=== PATIENT | male | born 1970 | race African-American/Black ===

== ENCOUNTER 2016-10-03 11:15 | Emergency (ER) | payer OTHER ==
[2016-10-03 11:25] VITALS: BP 164/109; PULSE 94; TEMP 98.8; BMI 27.3
--- NOTE | 2016-10-03 11:41 | PDOC ---
History of Present Illness - General Chief Complaint: Injury Stated Complaint: RT HAND LACERATION History Source: Patient, Unavil. due to pt. cond. - History of Present Illness Initial Comments: 10/03/16 11:40 Chief complaint: Laceration to right palm History of present illness: Patient is a 46-year-old male history of hypertension here today with laceration to his right palmar 5th finger that he sustained while picking up garbage at work [employer] today. Pt. has any numbness of his right hand or right fifth finger. Patient has full range of motion of all digits of right hand. Patient is unsure of what he got caught on in the garbage. 10/03/16 11:40 10/03/16 11:54 Occurred: reports: just prior to arrival Severity: reports: mild Pain Location: reports: upper extremity (rt. palmar proximal fifth finger) Method of Injury: Yes: other (something sharp in garbage) Modifying Factors: improves with: None Past History - Past Medical History Allergies/Adverse Reactions: Allergies Allergy/AdvReac Type Severity Reaction Status Date / Time No Known Allergies Allergy Verified 10/03/16 11:18 Home Medications: Ambulatory Orders Cephalexin Monohydrate [Keflex -] 500 mg PO Q8H #21 capsule 10/03/16 HTN: Yes (does not take meds) - Psycho/Social/Smoking Cessation Hx Anxiety: No Suicidal Ideation: No Smoking History: Never smoked Have you smoked in the past 12 months: No Information on smoking cessation initiated: No Hx Alcohol Use: No Drug/Substance Use Hx: No Substance Use Type: None Review of Systems - Review of Systems Able to Perform ROS?: Yes Constitutional: No: Symptoms Reported HEENTM: No: Symptoms Reported Respiratory: No: Symptoms reported Cardiac (ROS): No: Symptoms Reported ABD/GI: No: Symptoms Reported : No: Symptoms Reported Musculoskeletal: No: Symptoms Reported Integumentary: Yes: Other (laceration rt. proximal palmar 5th finger at mcp ) Neurological: No: Symptoms reported *Physical Exam - Vital Signs Last Vital Signs Temp Pulse Resp BP Pulse Ox 98.8 F 94 H 18 164/109 100 10/03/16 11:19 10/03/16 11:19 10/03/16 11:19 10/03/16 11:19 10/03/16 11:19 - Physical Exam General Appearance: Yes: Appropriately Dressed Comments:: 10/03/16 11:59 radial pulse 4 + rt. Extremity: positive: Normal Capillary Refill, Normal Range of Motion (right hand all digits), Other (palmar aspect 5th finger at mcp crease laceration ) Integumentary: positive: Other (palmar aspect 5th finger at mcp crease laceration horizontal 2.7 cm x 0.25cm ) Neurologic: positive: Respond to painful stimul (rt. 5th finger). negative: Numbness, Sensory Deficit Medical Decision Making - Medical Decision Making 10/03/16 12:32 *DC/Admit/Observation/Transfer Diagnosis at time of Disposition: Laceration of hand Qualifiers: Encounter type: initial encounter Laterality: right Qualified Code(s): S61.411A - Laceration without foreign body of right hand, initial encounter - Discharge Dispostion Disposition: HOME Condition at time of disposition: Stable - Prescriptions Prescriptions: Cephalexin Monohydrate [Keflex -] 500 mg PO Q8H #21 capsule - Referrals Referrals: Waldemar Martin MD [Primary Care Provider] - - Patient Instructions Additional Instructions: You may wash wound daily with antibacterial soap and water pat dry and apply tiny amount of bacitracin ointment twice daily, with bandage when out of the home Let air out at night Sunday your tetanus diphtheria and pertussis vaccine was updated follow up with your primary care physician regards to your blood pressure Return to emergency room in 10-14 days for suture removal or if any discharge around the wound or redness around both fever Patient voiced understanding of discharge instructions and all questions were answered
[2016-10-03] MEDS ORDERED: DIPHTH,PERTUSS(ACELL),TET 0.5 ML DISP.SYRIN IM ONE (11:52)
[2016-10-03] MEDS ORDERED: CEPHALEXIN MONOHYDRATE 500 MG CAPSULE (UD) PO ONE (12:36)
[2016-10-03] MEDS ORDERED: CEPHALEXIN MONOHYDRATE 500 MG CAPSULE (UD) ONE (12:39)
== END 2016-10-03 12:51 | disposition home or self-care (01) ==
LOC: JERFT 11:15
PROC: 0HQFXZZ Repair Right Hand Skin, External Approach (ICD-10-PCS; principal; 2016-10-03)
PROC: 3E0234Z Introduction of Serum, Toxoid and Vaccine into Muscle, Percutaneous Approach (ICD-10-PCS; 2016-10-03)
DX: S61.411A Laceration without foreign body of right hand, initial encounter (principal); W45.8XXA Other foreign body or object entering through skin, initial encounter; W22.8XXA Striking against or struck by other objects, initial encounter; Y93.H9 Activity, other involving exterior property and land maintenance, building and construction; Y92.63 Factory as the place of occurrence of the external cause; Y99.0 Civilian activity done for income or pay
CPT/HCPCS: 73140-TC-RT; 90715; 99281-25

== ENCOUNTER 2016-10-16 09:36 | Emergency (ER) | payer OTHER ==
[2016-10-16 10:05] VITALS: BP 155/103; PULSE 95; TEMP 98.3; BMI 27.3
--- NOTE | 2016-10-16 11:16 | PDOC ---
Suture Removal/Wound Check HPI - History of Present Illness Chief Complaint: Suture/Staple Removal(Here) Stated Complaint: REMOVING STITCHES Time Seen by Provider: 10/16/16 11:06 History Source: Yes: Care Provider Exam Limitations: Yes: No Limitations Treated at: [facility] ED - Previous ED Treatment Type of procedure performed on last visit: Yes: Laceration Repair Past History - Past Medical History Allergies/Adverse Reactions: Allergies No Known Allergies Allergy (Verified 10/16/16 09:59) Home Medications: Ambulatory Orders Cephalexin Monohydrate [Keflex -] 500 mg PO Q8H #21 capsule 10/03/16 - Immunization History Tetanus Status: Unknown - Social History Smoking Status: Never smoked Suture Removal/Wound Check PE - Physical Exam Location of Laceration/Wound: left: Hand (3 sututures left hand) *Review of Systems - Review of Systems Constitutional: No: Symptoms Reported HEENTM: No: Symptoms Reported Respiratory: No: Symptoms reported Integumentary: Yes: Other (post removal of 3 sutures left hand ain area of distal 5th MCs; wound healing well, not infected) Medical Decision Making - Medical Decision Making 10/16/16 11:14 not infected no f/u needed *DC/Admit/Observation/Transfer Diagnosis at time of Disposition: Encounter for removal of sutures - Discharge Dispostion Disposition: HOME Condition at time of disposition: Stable Admit: No - Patient Instructions Additional Instructions: seelocal MD for any new symptoms - Post Discharge Activity Work/School Note: Back to Work
== END 2016-10-16 11:19 | disposition home or self-care (01) ==
LOC: JERFT 09:36
DX: Z48.02 Encounter for removal of sutures (principal)
CPT/HCPCS: 99281-25